=== PATIENT | female | born 1985 | race Caucasian/White ===

== ENCOUNTER 2017-03-01 23:38 | Emergency (ER) | payer SELFPAY ==
[~2017-03-01] VITALS: Ht 177.8 cm; Wt 61.6 kg
[~2017-03-01 23:38] MED LIST: IBUP600 PO; PERC5TAB12 PO; PNVPAK PO
[2017-03-01 23:48] VITALS: BP 114/70; PULSE 62; RESP 14; TEMP 98.4; O2SAT 100
--- NOTE | 2017-03-02 00:20 | PD ---
HPI Chief Complaint: Abdominal Pain Time Seen by Provider: 00:06 Travel History International Travel<30 days: No Contact w/Intl Traveler<30days: No Traveled to known affect area: No History of Present Illness HPI The patient is a 31-year-old female that complains of pain associated with muscle movements on her right side, she feels it "right next to my hip". She just started running lately. She denies any nausea, fever, diarrhea, dysuria, frequency or urgency. Her last menstrual period was February 10. She still has her gallbladder and appendix. She is G7, P3, A 4 with 1 ectopic . [facility] Past Medical History Medical History: Denies Significant Hx Cancer: No Diabetes: No Hepatitis: No Hiatal Hernia: No Thyroid Disease: No Tetanus Vaccination: Never Vaccinated ?: Unknown LMP: 02/10/17 : 7 Para: 3 Miscarriage: 3 Ectopic : Yes (DISOLUTION LAST SATURDAY, BUT QUESTIONABLE SUCCESS) Past Surgical History Abdominal Surgery: No Cardiac Surgery: No Ear Surgery: No Endocrine Surgery: No Eye Surgery: No Genitourinary Surgery: No Gynecologic Surgery: Yes (LAP, D&C) Oral Surgery: No Pacemaker: No Thoracic Surgery: No Other Surgery: Yes Social History Alcohol Use: No Tobacco Use: No (quit 12 years ago) Substance Use: No Allergies-Medications (Allergen,Severity, Reaction): Coded Allergies: No Known Allergies (Verified , 03/01/17) Reported Meds & Prescriptions Reported Meds & Active Scripts Active No Active Prescriptions or Reported Medications Review of Systems Except as stated in HPI: all other systems reviewed are Neg Physical Exam Narrative GENERAL: The patient is alert, oriented 3 in slight apparent distress with her left hip pain. Her vital signs are normal. SKIN: Focused skin assessment warm/dry. HEAD: Atraumatic. Normocephalic. EYES: Pupils equal and round. No scleral icterus. No injection or drainage. ENT: No nasal bleeding or discharge. Mucous membranes pink and moist. NECK: Trachea midline. No JVD. CARDIOVASCULAR: Regular rate and rhythm. No murmur appreciated. RESPIRATORY: No accessory muscle use. Clear to auscultation. Breath sounds equal bilaterally. GASTROINTESTINAL: Abdomen soft, non-tender, nondistended. Hepatic and splenic margins not palpable. MUSCULOSKELETAL: No obvious deformities. No clubbing. No cyanosis. No edema. I can completely reproduce the patient's pain by pressing medial along the right pelvis over the musculature in this area. NEUROLOGICAL: Awake and alert. No obvious cranial nerve deficits. Motor grossly within normal limits. Normal speech. PSYCHIATRIC: Appropriate mood and affect; insight and judgment normal. GENITOURINARY: Normal external genitalia without lesions or erythema. Vaginal vault without blood or drainage. Cervical os was closed without drainage. No cervical motion tenderness. Uterus nontender and nonenlarged. Bilateral adnexa nontender without masses. Data Data Last Documented VS Vital Signs Date Time Temp Pulse Resp B/P Pulse Ox O2 Delivery O2 Flow Rate FiO2 03/01/17 23:48 98.4 62 14 114/70 100 Orders Complete Blood Count With Diff (03/02/17 00:20) Basic Metabolic Panel (Bmp) (03/02/17 00:20) Urinalysis - C+S If Indicated (03/02/17 00:20) Labs Laboratory Tests Test 03/02/17 00:20 White Blood Count 6.7 TH/MM3 Red Blood Count 4.55 MIL/MM3 Hemoglobin 13.4 GM/DL Hematocrit 40.4 % Mean Corpuscular Volume 88.7 FL Mean Corpuscular Hemoglobin 29.4 PG Mean Corpuscular Hemoglobin 33.1 % Concent Red Cell Distribution Width 12.0 % Platelet Count 185 TH/MM3 Mean Platelet Volume 8.1 FL Neutrophils (%) (Auto) 51.4 % Lymphocytes (%) (Auto) 36.2 % Monocytes (%) (Auto) 10.2 % Eosinophils (%) (Auto) 0.8 % Basophils (%) (Auto) 1.4 % Neutrophils # (Auto) 3.4 TH/MM3 Lymphocytes # (Auto) 2.4 TH/MM3 Monocytes # (Auto) 0.7 TH/MM3 Eosinophils # (Auto) 0.1 TH/MM3 Basophils # (Auto) 0.1 TH/MM3 CBC Comment DIFF FINAL Differential Comment Urine Color YELLOW Urine Turbidity CLEAR Urine pH 6.5 Urine Specific [place] 1.025 Urine Protein NEG mg/dL Urine Glucose (UA) NEG mg/dL Urine Ketones TRACE mg/dL Urine Occult Blood NEG Urine Nitrite NEG Urine Bilirubin NEG Urine Leukocyte Esterase NEG Urine RBC 0-3 /hpf Urine WBC 0-2 /hpf Urine Squamous Epithelial 0-5 /hpf Cells Urine Bacteria NONE /hpf Microscopic Urinalysis Comment CULT NOT INDICATED Sodium Level 142 MEQ/L Potassium Level 3.5 MEQ/L Chloride Level 108 MEQ/L Carbon Dioxide Level 26.0 MEQ/L Anion Gap 8 MEQ/L Blood Urea Nitrogen 10 MG/DL Creatinine 1.10 MG/DL Estimat Glomerular Filtration 58 ML/MIN Rate Random Glucose 93 MG/DL Calcium Level 9.2 MG/DL [facility] Medical Decision Making Medical Screen Exam Complete: Yes Emergency Medical Condition: Yes Medical Record Reviewed: Yes Interpretation(s) The [id number] urine test is negative. The CBC is normal. The basic metabolic profile shows a creatinine of 1.1 and GFR 58 but is otherwise unremarkable. The urine shows specific gravity 1.025 with trace ketones but is otherwise normal and culture is not indicated. Differential Diagnosis Musculoskeletal pain, PID, ovarian cyst, ectopic , intrauterine Narrative Course The patient appears to have musculoskeletal pain. Plan: The patient will be given Motrin and rest, it is believed that her return to running may have caused this pain. Diagnosis Primary Impression: Musculoskeletal pain Additional Instructions: As we discussed, discontinue running and take the Motrin regularly. Resume exercising with of a gradual pace. Med/Other Pt SpecificInfo: Prescription(s) given Scripts No Active Prescriptions or Reported Meds Disposition: 01 DISCHARGE HOME Condition: José Manuel Qiu MD Mar 02, 2017 00:20 Condition: José Manuel Qiu MD Mar 02, 2017 00:20
[2017-03-02 00:31] LABS: BLOOD, URINE NEG (NEG); GLUCOSE,URINE NEG (NEG); KETONE, URINE TRACE mg/dL (NEG); NITRITE,URINE NEG (NEG); PH, URINE 6.5 (5.0-8.5)
[2017-03-02 00:32] LABS: AUTOMATED NEUTROPHIL # 3.4 TH/MM3 (1.8-7.7); BASOPHIL # 0.1 TH/MM3 (0-0.2); BASOPHIL % 1.4 % (0.0-2.0); EOSINOPHIL # 0.1 TH/MM3 (0-0.4); EOSINOPHIL % 0.8 % (0.0-4.0); HEMATOCRIT 40.4 % (35.0-46.0); HEMO FLAGS DIFF FINAL; LYMPH % 36.2 % (9.0-44.0); LYMPHOCYTE # 2.4 TH/MM3 (1.0-4.8); MEAN CELL VOLUME 88.7 FL (80.0-100.0); MEAN CORPUSCULAR HEMOGLOBIN 29.4 PG (27.0-34.0); MEAN CORPUSCULAR HGB CONC 33.1 % (32.0-36.0); MONO % 10.2 % (0.0-8.0); NEUT % 51.4 % (16.0-70.0); PLATELET COUNT 185 TH/MM3 (150-450); RED BLOOD COUNT 4.55 MIL/MM3 (4.00-5.30); WHITE BLOOD COUNT 6.7 TH/MM3 (4.0-11.0)
[2017-03-02 00:37] LABS: URINE COLOR YELLOW (YELLW/STRAW)
[2017-03-02 00:38] LABS: COMMENT (UR) CULT NOT INDICATED; CULTURE IF INDICATED CULT NOT INDICATED; RBC, URINE 0-3 /hpf (0-3); SQUAMOUS EPITHELIAL CELL URINE 0-5 /hpf (0-5); WBC, URINE 0-2 /hpf (0-5)
[2017-03-02 00:39] LABS: POTASSIUM 3.5 MEQ/L (3.5-5.1)
[2017-03-02] MEDS ORDERED: IBUP-232 PO (01:39)
[2017-03-02] MEDS ORDERED: IBUPROFEN 600 MG TAB PO ONE (01:45)
== END 2017-03-02 01:53 | disposition home or self-care (01) ==
LOC: PHED 23:38
DX: M79.1 Myalgia (principal); M25.552 Pain in left hip
CPT/HCPCS: 80048; 81001; 85025; 99283

== ENCOUNTER 2017-03-16 08:16 | Emergency (ER) | payer MEDICAID, OTHER ==
[~2017-03-16] VITALS: Ht 167.6 cm; Wt 61.8 kg
[~2017-03-16 08:16] MED LIST changes: +IBUP-232 PO; -IBUP600 PO; -PERC5TAB12 PO; -PNVPAK PO
[2017-03-16 08:22] VITALS: BP 116/77; PULSE 75; RESP 16; TEMP 98.5; O2SAT 100
[2017-03-16 09:07] LABS: BLOOD, URINE LARGE (NEG); GLUCOSE,URINE NEG (NEG); KETONE, URINE NEG (NEG); NITRITE,URINE NEG (NEG); PH, URINE 6.5 (5.0-8.5)
[2017-03-16 09:10] LABS: METHOD OF COLLECTION CLEAN CATCH; URINE COLOR PINK (YELLW/STRAW)
[2017-03-16 09:11] LABS: BACTERIA, URINE OCC /hpf; COMMENT (UR) CULT NOT INDICATED; CULTURE IF INDICATED CULT NOT INDICATED; RBC, URINE INNUM /hpf (0-3)
--- NOTE | 2017-03-16 09:51 | PD ---
HPI . Right pelvic pain in Chief Complaint: Related Problem Time Seen by Provider: 09:20 Travel History International Travel<30 days: No Contact w/Intl Traveler<30days: No Traveled to known affect area: No History of Present Illness HPI Patient presents complaining with right sided pelvic pain. It has been present since about March 02. She was seen here at the onset of her symptoms and diagnosed with musculoskeletal she had a negative test at that time. Her pain has been treated with ibuprofen and Tylenol. Pain persists. She states that her pain is not exacerbated by movement. The pain comes and goes. She states that she has subsequently had a positive home test. Today , she started bleeding. She is concerned about possible ectopic . Her last normal menstrual period was February 10. She states that the test was prompted by sore breasts. The bleeding is very minimal. PFSH Past Medical History Medical History: Denies Significant Hx Cancer: No Diabetes: No Hepatitis: No Hiatal Hernia: No Thyroid Disease: No Tetanus Vaccination: < 5 Years Influenza Vaccination: No ?: LMP: 02/10/17 : 8 Para: 3 Miscarriage: 4 Ectopic : Yes (DISOLUTION in 2006) Dilation and Curettage (D&C): Yes (x2) Past Surgical History Abdominal Surgery: No Cardiac Surgery: No Ear Surgery: No Endocrine Surgery: No Eye Surgery: No Genitourinary Surgery: No Gynecologic Surgery: Yes (LAP, D&C) Oral Surgery: No Pacemaker: No Thoracic Surgery: No Other Surgery: Yes Social History Alcohol Use: No Tobacco Use: No (cigs -quit 12 years ago) Substance Use: No Allergies-Medications (Allergen,Severity, Reaction): Coded Allergies: No Known Allergies (Verified , 03/16/17) Reported Meds & Prescriptions Reported Meds & Active Scripts Active No Active Prescriptions or Reported Medications Review of Systems Except as stated in HPI: all other systems reviewed are Neg General / Constitutional: No: Fever, Chills Genitourinary: Positive: Pelvic Pain, Vaginal Bleeding, No: Urgency, Frequency , Dysuria Musculoskeletal: Positive: Pain (right lower abdomen) Physical Exam Narrative GENERAL: Awake and alert and in no acute distress. SKIN: Warm and dry. HEAD: Atraumatic. Normocephalic. EYES: Pupils equal and round. ENT: No nasal bleeding or discharge. Mucous membranes pink and moist. NECK: Trachea midline. CARDIOVASCULAR: Regular rate and rhythm. RESPIRATORY: No accessory muscle use. GASTROINTESTINAL: Abdomen soft. Minimal tenderness just to the right upper pubic bone. Nondistended. : Normal female external genitalia. Some blood in the vaginal vault consistent with a menstrual cycle. Cervical os is closed. There is no cervical motion tenderness. There is no adnexal tenderness or masses. MUSCULOSKELETAL: No obvious deformities. No edema. NEUROLOGICAL: Awake and alert. No obvious cranial nerve deficits. Motor grossly within normal limits. Normal speech. PSYCHIATRIC: Appropriate mood and affect; insight and judgment normal. Data Data Last Documented VS Vital Signs Date Time Temp Pulse Resp B/P Pulse Ox O2 Delivery O2 Flow Rate FiO2 03/16/17 08:33 16 03/16/17 08:22 98.5 75 116/77 100 Orders Urinalysis - C+S If Indicated (03/16/17 08:36) Ed Urine Pregnancytest Poc (03/16/17 09:20) Beta Hcg (Quant/Titer) (03/16/17 09:26) Gc And Chlamydia Pcr (03/16/17 09:26) Wet Prep Profile (03/16/17 09:26) Labs Laboratory Tests Test 03/16/17 03/16/17 03/16/17 09:00 09:30 09:40 Urine Collection Type CLEAN CATCH Urine Color PINK Urine Turbidity CLOUDY Urine pH 6.5 Urine Specific [place] 1.016 Urine Protein 30 mg/dL Urine Glucose (UA) NEG mg/dL Urine Ketones NEG mg/dL Urine Occult Blood LARGE Urine Nitrite NEG Urine Bilirubin NEG Urine Leukocyte Esterase TRACE Urine RBC INNUM /hpf Urine WBC 3-5 /hpf Urine Bacteria OCC /hpf Microscopic Urinalysis Comment CULT NOT INDICATED Human Chorionic Gonadotropin, 14 MIU/ML Quant Clue Cells (Wet Prep) NONE SEEN Vaginal Trichomonas (Wet Prep) NONE SEEN Vaginal Yeast (Wet Prep) NONE SEEN MDM Medical Decision Making Medical Screen Exam Complete: Yes Emergency Medical Condition: Yes Differential Diagnosis Differential diagnosis of pelvic pain includes but is not limited to UTI, PID, ectopic , spontaneous AB, constipation, viral illness Narrative Course Patient presents complaining with right pelvic pain since about March 02 now associated with vaginal bleeding which started today. In the interim, she has had a positive home test. test on March 02 was negative. She is concerned that she has an ectopic . Last normal menstrual period was February 10. Urine test here today is negative. I suspect that this is her normal menstrual cycle. Quantitative hCG is 14 which is considered equivocal for . Diagnosis Primary Impression: Vaginal bleeding Patient Instructions: Dysfunctional Uterine Bleeding (GEN), General Instructions Additional Instructions: Follow-up with your leasing coordinator if this does not proceed as a normal menstrual cycle. Scripts No Active Prescriptions or Reported Meds Disposition: DISCHARGE HOME Condition: Stable Ni Person MD March 16, 2017 09:51
[2017-03-16 10:28] LABS: BETA HCG QUANT 14 MIU/ML (0-5)
[2017-03-16 17:02] LABS: CHLAMYDIA PCR NOT DETECTED (NOT DETECT); NEISSERIA PCR NOT DETECTED (NOT DETECT)
== END 2017-03-16 10:47 | disposition home or self-care (01) ==
LOC: PHED 08:47
DX: N93.9 Abnormal uterine and vaginal bleeding, unspecified (principal)
CPT/HCPCS: 81001; 84702; 84703; 87210; 87491; 87591; 99284

== ENCOUNTER 2018-04-17 17:07 | Emergency (ER) | payer MEDICAID ==
--- NOTE | 2018-04-17 17:58 | PD ---
HPI Chief Complaint blurry vision and wt gain Date Seen: Apr 17, 2018 Time Seen: 17:51 Travel History International Travel<30 Days: No Contact w/Intl Traveler<30Days: No Known Affected Area: No History of Present Illness HPI 33y/o @ 24.3wks. She has PNC with Dr. Hawley. She presents with concerns of blurry vision and wt gain. She states that she has rapidly been gaining this and has been monitoring and has gained 6lbs in a few days. Reports regular BMs. Denies swelling. Had a mild SINGH which resolved the other day. No LOF, VB. +FM. Weeks Gestation: 24 Para: 3 : 9 History Past Medical History Medical History: Denies Significant Hx Obstetric History Obstetric History ectopic x1 SAB x4 (pt reports luteal phase defect) x3 Past Surgical History Surgical History: No Previous Surgery Family History Family History: Negative Social History Alcohol Use: No Tobacco Use: No Substance Abuse: No Allergies-Medications (Allergen,Severity, Reaction): Coded Allergies: No Known Allergies (Verified , 03/16/17) Home Meds No Active Prescriptions or Reported Meds Narrative Medication PNVs Review of Systems Except as stated in HPI: all other systems reviewed are Neg Physical Exam Narrative General: well developed, well nourished, no acute distress HEENT: normocephalic atraumatic, extraocular movements intact, neck supple Abdomen: soft, gravid, nontender, nondistended Uterus: fundus above umbilicus Extremities: full range of motion, no edema Skin: normal coloration, no rashes, no suspicious skin lesions noted Neurologic: cranial nerves 2-12 grossly intact, normal muscle tone, normal gait Psychiatric: normal mood and affect, appropriate FHTs: 150s, moderate variability, age appropriate with single variable decel [place]: quiet Cvx: deferred Data Data Vital Signs Reviewed: Yes Orders Orders Vital Signs (Adult) .ON ADMISSION (04/17/18 17:50) ^ Labor Status (04/17/18 17:50) ^ Non Stress Test (04/17/18 17:50) Ed Discharge Order (04/17/18 17:50) MDM Plan 33y/o @ 24.3wks with blurry vision and wt gain. 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
== END 2018-04-17 18:11 | disposition home or self-care (01) ==
LOC: HOBED 17:07
DX: O26.892 Other specified pregnancy related conditions, second trimester (principal); H53.8 Other visual disturbances; O26.02 Excessive weight gain in pregnancy, second trimester; Z3A.24 24 weeks gestation of pregnancy
CPT/HCPCS: 99283

== ENCOUNTER → 2018-04-18 | Outpatient (CLI) | payer MEDICAID ==
--- NOTE | 2018-04-19 12:40 | EKG ---
Date Performed: 04/18/2018 Time Performed: 13:36:28 PTAGE: 33 years EKG: Sinus rhythm WITH SINUS ARRHYTHMIA NORMAL ECG NO PREVIOUS TRACING DOCTOR: Elijah Luz Interpretating Date/Time 04/19/2018 12:36:59
== END ==
LOC: HCAV 13:23
PROVIDERS: ATTEND Obstetrics & Gynecology
DX: R01.1 Cardiac murmur, unspecified (principal)
CPT/HCPCS: 93005

== ENCOUNTER 2018-07-27 10:40 | Inpatient (IN) ==
[2018-07-27] MEDS ORDERED: Morphine Sulfate PF Inj 5 MG/10 ML Ampul ONE (11:09)
--- NOTE | 2018-07-27 11:17 | P.HPOB ---
Patient Name: Sherry Hernandez Date of : 83 Patient Status: Inpatient Attending Provider: Rosa Elena Wise Date: 07/27/18 11:07 Initialization Date: 07/27/18 11:07 History of Present Illness Primary Care Physician: Cyril Ordaz MD History of Present Illness: 33-year-old 9 para 3 at 38 weeks 6 days gestation who started having contractions last night and comes today thinking she may be in labor. She denies leakage of fluid or bleeding. She is scheduled for tomorrow due to suspected macrosomia of greater than 10 pounds. Obstetrical history: She has had 4 miscarriages one ectopic and 3 vaginal deliveries. Her current is under the care of and has been complicated by suspected macrosomia. Ultrasound on Saturday of this week estimated weight at 9 lbs. 15 oz. Review of Systems All other systems reviewed negative except as stated in HPI PMFSH - Medical / Surgical Hx Neg / Unobtainable Medical Problems Denied: Yes - Medical History Medical History: Medical History (Last Updated 05/23/18 @ 14:17 by Lance Cole III, MD, R2) Ectopic without intrauterine Fatigue - Surgical History Surgical History: Surgical History (Last Updated 07/27/18 @ 11:11 by Christiano Ferreira MD) History of laparoscopy - Family History Family History: Family History (Last Updated 05/23/18 @ 14:17 by Lance Cole III, MD, R2) Other HTN (hypertension) - Social History I have reviewed the patient's Social History: Yes - Tobacco History Second Hand Smoke Exposure: No Tobacco Use In Past 30 Days: No Smoking Status: Never smoker - Alcohol History How Often Do You Have a Drink Containing Alcohol: Never - Substance Use History Substance History: No History of Abuse - Travel History History of Recent Travel: No Recent Travel in the [place] Within the Last 8 Weeks: No Recent Travel Out of the Country Within the Last 8 Weeks: No Medications and Allergies Allergies Allergy/AdvReac Type Severity Reaction Status Date / Time No Known Allergies Allergy Verified 06/09/18 10:49 Home Medications Medication Instructions Recorded Confirmed Type PNV #[id number] [id number] 1 tab PO DAILY 05/23/18 06/09/18 History Exam Vital signs: Vital Signs 07/27/18 11:00 Temperature 98.3 F Pulse Rate 71 Respiratory Rate 18 Blood Pressure 115/73 Narrative: GENERAL: Well-nourished, well-developed patient. SKIN: Warm and dry. HEAD: Normocephalic and atraumatic. EYES: No scleral icterus. No injection or drainage. ENT: No nasal drainage noted. Mucous membranes pink. Airway patent. NECK: Supple, trachea midline. No JVD. CARDIOVASCULAR: Regular rate and rhythm without murmurs, gallops, or rubs. RESPIRATORY: Breath sounds equal bilaterally. No accessory muscle use. ABDOMEN/GI: Abdomen soft, non-tender, bowel sounds present, no rebound, no guarding Gravid to [-] weeks size Fundal Height: [-42] GENITOURINARY: External Genitalia: intact and normal in appearance BUS glands: [Negative-] Cervix: [] Dilatation: [-2-3] Effacement: [-50] Station: [-3-] Presentation: [-vtx] Membranes: [intact] Uterine Contractions: [Moderate irregular-] FHT's: Category: [1-] Baseline: [-] Reactive: [-y] Variability: [-] Decels: [-] EXTREMITIES: No cyanosis or edema. BACK: Nontender without obvious deformity. No CVA tenderness. NEUROLOGICAL: Awake and alert. Motor and sensory grossly within normal limits. Five out of 5 muscle strength in all muscle groups. Normal speech. Assessment and Plan - Plan Assessment: 38+ week intrauterine in early labor with suspected macrosomia greater than 10 pounds Plan: The patient will be admitted with the plan for . Dr. Wise was made aware. Discharge Plan - Discharge Disposition Patient Disposition: 30 Still Patient - Physicians Team ED Provider: Christiano Ferreira Primary Care Provider: Cyril Ordaz - Rxs /Orders / Referrals /Forms Prescriptions: No Action PNV #[id number] acid-[id number] 30 mg iron-10 mg iron-1 mg Capsule 1 tab PO DAILY - Discharge Instructions Print Language: Danish
[2018-07-27] MEDS ORDERED: ceFAZolin 2 GM Premix Inj 2 GM/50 ML PIGGYBACK IV.SIG PRN (11:18)
[2018-07-27] MEDS ORDERED: Citric Acid/Sodium Citrate Liq 30 ML UDC PO SCH (11:30)
[2018-07-27 11:45] LABS: Baso % (Auto) 0.3 % (0.0-2.0); Eos # (Auto) 0.1 th/mm3 (0.0-0.4); Eos % (Auto) 0.5 % (0.0-4.0); Hematocrit 37.9 % (35.0-46.0); Hemoglobin 12.1 gm/dL (11.6-15.3); Lymph # (Auto) 1.6 th/mm3 (1.0-4.8); Lymph % (Auto) 13.8 % (9.0-44.0); Mean Corpuscular HGB Conc 32.1 % (32.0-36.0); Mean Corpuscular Volume 84.1 fL (80.0-100.0); Mean Platelet Volume 8.2 fL (7.0-11.0); Mono # (Auto) 1.2 th/mm3 (0.0-0.9); Mono % (Auto) 10.2 % (0.0-8.0); Neut # (Auto) 8.7 th/mm3 (1.8-7.7); Neut % (Auto) 75.2 % (16.0-70.0); Platelet Count 217 th/mm3 (150-450); Red Cell Distribution Width 15.9 % (11.6-17.2); White Blood Count 11.6 th/mm3 (4.0-11.0)
[2018-07-27 11:56] LABS: Amphetamine Screen,Urine Neg (Neg); Barbiturate Screen,Urine Neg (Neg); Cannabinoid Screen,Urine Neg (Neg); Cocaine Screen,Urine Neg (Neg)
[2018-07-27] MEDS ORDERED: miSOPROStol 200 MCG Tablet ONE (12:12)
[2018-07-27] MEDS ORDERED: Methylergonovine Inj 0.2 MG/ML Ampul ONE (12:12)
[2018-07-27 12:20] LABS: Opiate Screen,Urine Neg (Neg)
[2018-07-27] MEDS ORDERED: Ketorolac Inj 30 MG/ML (IVP) Vial IV.PUSH ONE (12:50)
[2018-07-27] MEDS ORDERED: Simethicone 80 MG Chew Tablet PO PRN (13:07)
[2018-07-27] MEDS ORDERED: Acetaminophen 325 MG Tablet PO PRN (13:07)
[2018-07-27] MEDS ORDERED: Zolpidem Tartrate 5 MG Tablet PO PRN (13:07)
--- NOTE | 2018-07-27 13:12 | P.OBDELI ---
Procedure Note - Pre Op Diagnosis (1) Active labor at term (2) macrosomia (3) 39 weeks gestation of - Post Op Diagnosis (1) S/P primary low transverse (2) Active labor at term (3) macrosomia (4) 39 weeks gestation of Performed by: Rosa Elena Wise MD Procedure: Primary Low Transverse Section Indication for Delivery: Other (elective primary due to suspected weight > 10 pounds) Informed Consent Obtained: For anesthesia, For procedure Confirmed Correct: Patient, Procedure, Site, Time-out taken Anesthesia: Spinal Medication Prior to Procedure: As documented in eMAR Monitoring During Procedure: Blood pressure monitoring, Pulse oximetry Urinary Catheter: Inserted using sterile technique, To dependent drainage, ml urine output (100) Sterile Preparation: Duraprep, In usual fashion, With drapes to expose affected area Position: Supine with wedge to right side - Operative Features Skin Incision: Pfannenstiel Uterine Incision: Low transverse w/knife / scissors Membranes Ruptured: Artificially, Amount of liquid (copious), Appearance of fluid (thick meconium) Presentation: Vertex Status of : Viable, Cord blood, Nursery present Placenta Delivered: Intact Medications: Antibiotics (ancef 2g IV preop) Estimated blood loss (mL): 500 Procedure Tolerated: Well Maternal Condition: Stable Baby Condition: Stable Procedure in Detail: see dictated op note - Infant Infant: Male Male A Delivery Date: 07/27/18 Infant Delivery Time: 12:32 Weight: 4.865 kg Delivery of Infant: Uneventful score (1 min): 9 score (5 min): 9
[2018-07-27] MEDS ORDERED: Oxytocin 30 Units/500ml Premix 30 UNITS/500 ML BAG ONE (13:14)
[2018-07-27] MEDS ORDERED: Oxytocin 30 Units/500ml Premix 30 UNITS/500 ML BAG IV.SIG ONE (13:30)
[2018-07-27] MEDS ORDERED: Naloxone Inj 0.4 MG/ML Vial IV.PUSH PRN (15:56)
[2018-07-27] MEDS ORDERED: Methylergonovine Inj 0.2 MG/ML Ampul IM ONE (16:00)
--- NOTE | 2018-07-27 17:34 | MP ---
cc: Rosa Elena Wise MD DATE OF OPERATION: 07/27/2018 PREOPERATIVE DIAGNOSES: 1. Majano intrauterine at 38 weeks 6 days. 2. Suspected macrosomia. Estimated weight over 10 pounds. 3. Desired elective primary due to suspected macrosomia. 4. Active labor. POSTOPERATIVE DIAGNOSES: 1. Majano intrauterine at 38 weeks 6 days. 2. Suspected macrosomia. Estimated weight over 10 pounds. 3. Elective primary due to suspected macrosomia. 4. Active labor. 5. Postoperative day number 0. INDICATIONS: Sherry Hernandez is a 33-year-old 9, para now 4-0-5-4, who presented to labor and delivery with complaints of contractions, was found to be in active labor, 3 cm dilated with contractions every 2 minutes, and history of precipitous deliveries. Outpatient evaluation showed suspected macrosomia, estimated weight greater than 10 pounds. The patient had a planned elective primary planned with Dr. Hawley tomorrow, 07/28/2018, but due to presenting in active labor, she was taken for surgery today. PROCEDURE PERFORMED: Primary low transverse delivery. SURGEON: Rosa Elena Wise MD TYPE OF ANESTHESIA: Spinal. ESTIMATED BLOOD LOSS: 500 mL URINE OUTPUT: 100 mL of clear urine draining in the De La Torre bag at the end of the procedure. IV FLUID REPLACEMENT: 1600 mL COMPLICATIONS: None. COUNTS: The sponge, lap, instrument, and needle counts were correct x2 at the conclusion of the procedure. PROPHYLAXIS: Ancef 2 g IV was given preoperatively, and SCDs were on and functioning throughout the entire case. INTRAOPERATIVE FINDINGS: A vigorous viable male infant weighing 10 pounds 12 ounces, correlating to 4865 grams. Apgars of 9 and 9. Amniotic fluid was thick meconium. Normal-appearing uterus, bilateral fallopian tubes, and ovaries. SPECIMEN: None. PROCEDURE IN DETAIL: After reviewing the informed consent, the patient was taken to the operating suite, where a timeout was performed to identify the patient, planned procedure, any known allergies to drugs or drug products. The patient was placed sitting up on the exam table, and spinal anesthesia was administered without difficulty and found to be adequate. The patient was then laid in dorsal supine position with a bump under her right side, and abdomen and perineum were prepped and draped in normal sterile fashion. De La Torre catheter was placed using sterile technique. A Pfannenstiel type skin incision was made with a scalpel and carried down to the underlying layer of fascia with the Bovie. The fascia was incised in the midline. Incision was extended laterally with sharp dissection using Santana scissors. Superior and inferior aspects of the fascial incision were elevated with Theresa clamps and rectus muscles dissected off sharply with Santana scissors. Rectus muscles were then in the midline. Peritoneum was identified and entered bluntly with surgeon's index finger. This incision was extended bluntly with good visualization of pelvic contents. Bladder blade was placed. A bladder flap was not made. A low transverse uterine incision was made. Incision was extended bluntly. Amniotic sac was ruptured with thick meconium noted. The infant's head was grasped and elevated out of the incision. With gentle maneuvering, the rest of the 's body readily delivered. was immediately vigorous and crying upon delivery. Delayed cord clamping at 45 seconds was performed. Cord was then clamped and cut, and the infant was handed off to the awaiting nursery staff. The uterus was then exteriorized, cleared of all clots and debris with sterile moist lap sponges. The placenta had been delivered with gentle cord traction and fundal massage. The hysterotomy was repaired in a double-layer, first in a running locked layer, then an imbricating layer. The posterior cul-de-sac was irrigated copiously with warm sterile saline. Uterus was returned to the abdomen. Additional irrigation with suction was performed, and a layer of Interceed was placed over the repaired hysterotomy to act as an adhesion barrier. Peritoneum was closed in a running layer with 2-0 chromic. Fascia was closed in running layer with #1 Vicryl. Subcutaneous tissue was irrigated, and excellent hemostasis was ensured with the Bovie. Skin was cleaned with dried and closed in a subcuticular fashion with 3-0 Monocryl. Steri-Strips were then placed as well as a standard dressing. The procedure concluded at this point. The patient tolerated the procedure well without complication. DISPOSITION: The patient is resting in the postanesthesia care unit. Her estimated length of stay is 2-3 postoperative days. Infant is currently nursery status. MD Ivanna Wilcox , 01:07 PM , 01:15 PM [facility]ITAL[facility]
[2018-07-27] MEDS ORDERED: Oxytocin 30 Units/500ml Premix 30 UNITS/500 ML BAG IV.SIG PRN (18:07)
[2018-07-28] MEDS: Senna/Docusate Sodium 8.6/50 MG Tablet PO PRN (03:25)
[2018-07-28 05:51] LABS: Baso % (Auto) 0.2 % (0.0-2.0); Eos % (Auto) 0.4 % (0.0-4.0); Hematocrit 25.7 % (35.0-46.0); Hemoglobin 8.3 gm/dL (11.6-15.3); Lymph # (Auto) 2.6 th/mm3 (1.0-4.8); Lymph % (Auto) 18.2 % (9.0-44.0); Mean Corpuscular HGB Conc 32.3 % (32.0-36.0); Mean Corpuscular Volume 83.6 fL (80.0-100.0); Mean Platelet Volume 7.8 fL (7.0-11.0); Mono # (Auto) 1.4 th/mm3 (0.0-0.9); Mono % (Auto) 9.9 % (0.0-8.0); Neut # (Auto) 10.1 th/mm3 (1.8-7.7); Neut % (Auto) 71.3 % (16.0-70.0); Platelet Count 189 th/mm3 (150-450); Red Blood Count 3.08 mil/mm3 (4.00-5.30); Red Cell Distribution Width 15.8 % (11.6-17.2); White Blood Count 14.1 th/mm3 (4.0-11.0)
--- NOTE | 2018-07-28 11:40 | P.PNOB ---
Subjective Post op day: 1 Objective Vital Signs/I&O: Vital Signs 07/27/18 11:45 07/27/18 13:15 07/27/18 13:30 Temperature 97.7 F Pulse Rate 88 58 L Respiratory Rate 18 18 16 Blood Pressure 128/73 106/59 L 07/27/18 13:45 07/27/18 14:00 07/27/18 14:15 Temperature Pulse Rate 59 L 61 60 Respiratory Rate 16 18 18 Blood Pressure 111/63 111/63 115/56 L 07/27/18 14:25 07/27/18 14:30 07/27/18 15:23 Temperature 97.6 F 97.9 F Pulse Rate 59 L 56 L Respiratory Rate 18 18 Blood Pressure 113/57 L 127/79 07/27/18 19:35 07/28/18 00:00 07/28/18 05:10 Temperature 98.1 F 98.2 F 98.0 F Pulse Rate 64 65 72 Respiratory Rate 18 17 16 Blood Pressure 117/63 108/62 100/65 07/28/18 07:25 07/28/18 11:24 Temperature 97.7 F 97.9 F Pulse Rate 64 58 L Respiratory Rate 18 16 Blood Pressure 103/62 102/57 L Intake & Output 07/27/18 07/28/18 07/28/18 18:59 06:59 18:59 Weight 88 kg Result Diagrams: 07/28/18 05:13 Objective Remarks: GENERAL: Well-nourished, well-developed patient. CARDIOVASCULAR: Regular rate and rhythm without murmurs, gallops, or rubs. RESPIRATORY: Breath sounds equal bilaterally. No accessory muscle use. ABDOMEN/GI: Abdomen soft, non-tender, bowel sounds present. Incision: dressing, Clean, dry and intact. Fundus: Firm, non-tender at umbilicus. GENITOURINARY: Light to moderate bleeding. EXTREMITIES: No cyanosis or edema, non-tender, without signs of DVT, pneumatic sequential device on Medications and IVs: Active Medications Acetaminophen (Tylenol) 650 mg PO Q6H PRN PRN Reason: PAIN SCALE 1 TO 2 Diphenhydramine HCl (Benadryl) 50 mg PO Q6H PRN PRN Reason: MILD TO MODERATE ITCHING Stop: 07/28/18 15:55 Diphenhydramine HCl (Benadryl Inj) 25 mg IV.PUSH Q6H PRN PRN Reason: MILD TO MODERATE ITCHING Stop: 07/28/18 15:55 Diphtheria/Pertussis/Tetanus Vacc (Boostrix Vaccine Inj) 0.5 ml IM .ONCE ONE Stop: 07/28/18 16:01 Lactated Ringer's (Lr 1000 Ml Inj) 1,000 mls @ 100 mls/hr IV.CONT .Q10H TEE Stop: 07/28/18 14:06 Last Admin: 07/28/18 05:05 Dose: 100 mls/hr Oxytocin (Pitocin 30 Units/Ns 500 Ml Premix) 30 units in 500 mls @ 100 mls/hr IV.SIG UNSCH PRN PRN Reason: Heavy bleeding Ibuprofen (Motrin) 800 mg PO Q8H PRN PRN Reason: cramping Last Admin: 07/28/18 03:26 Dose: 800 mg Ketorolac Tromethamine (Toradol Inj) 30 mg IM Q6H PRN PRN Reason: SEE LABEL COMMENTS Stop: 08/01/18 13:06 Measles/Mumps/Rubella Vaccine Live (M-M-R Ii Vaccine Inj) 0.5 ml SQ .ONCE ONE Stop: 07/28/18 16:01 Miscellaneous Information ([facility] Information) 1 each OTHER UNSCH PRN PRN Reason: SEE LABEL COMMENTS Stop: 07/28/18 15:55 Miscellaneous Information ([facility] Information) 1 each OTHER UNSCH PRN PRN Reason: SEE LABEL COMMENTS Stop: 07/28/18 15:55 Naloxone HCl (Narcan Inj) 0.4 mg IV.PUSH UNSCH PRN PRN Reason: SEE LABEL COMMENTS Stop: 07/28/18 15:55 Ondansetron HCl (Zofran Inj) 4 mg IV.PUSH Q6H PRN PRN Reason: NAUSEA OR VOMITING Oxycodone/Acetaminophen (Percocet 5/325 Mg) 1 tab PO Q4H PRN PRN Reason: PAIN SCALE 3 TO 5 Last Admin: 07/28/18 03:25 Dose: 1 tab Oxycodone/Acetaminophen (Percocet 5/325 Mg) 2 tab PO Q4H PRN PRN Reason: PAIN SCALE 6 TO 10 Last Admin: 07/28/18 07:57 Dose: 2 tab Senna/Docusate Sodium (Guillermina-Colace) 2 tab PO Q12H PRN PRN Reason: CONSTIPATION Last Admin: 07/28/18 03:25 Dose: 2 tab Simethicone (Mylicon Chew) 80 mg PO QID PRN PRN Reason: FLATULENCE Sodium Chloride (Ns Flush) 2 ml IV.FLUSH BID TEE Last Admin: 07/28/18 03:29 Dose: Not Given Sodium Chloride (Ns Flush) 2 ml IV.FLUSH UNSCH PRN PRN Reason: FLUSH AFTER USING IV ACCESS Zolpidem Tartrate (Ambien) 5 mg PO HS PRN PRN Reason: INSOMNIA Assessment and Plan - Plan POD #1 pt doing well will ambulate and shower today discussed low hemoglobin 8.3, VSS. advised to move slowly and call for assistance, she will report any chest pain, SOB or dizziness. repeat cbc in am pain well managed with oral pain medication bonding with infant passing gas routine care Discharge Planning: consider dc in 1-2 days
[2018-07-28] MEDS ORDERED: Diphtheria/Tetanus/Pertussis Vaccine Inj 0.5 ML Syringe IM ONE (16:00)
[2018-07-28] MEDS ORDERED: Measles/Mumps/Rubella Vaccine Inj 0.5 ML Vial SQ ONE (16:00)
[2018-07-29] MEDS: Senna/Docusate Sodium 8.6/50 MG Tablet PO PRN (01:04)
[2018-07-29 05:51] LABS: Hematocrit 26.5 % (35.0-46.0); Hemoglobin 8.7 gm/dL (11.6-15.3); Mean Corpuscular Hemoglobin 27.3 pg (27.0-34.0); Mean Corpuscular Volume 82.7 fL (80.0-100.0); Mean Platelet Volume 7.6 fL (7.0-11.0); Platelet Count 224 th/mm3 (150-450); Red Cell Distribution Width 16.1 % (11.6-17.2); White Blood Count 14.1 th/mm3 (4.0-11.0)
[2018-07-29 09:24] VITALS: BP 111/65
--- NOTE | 2018-07-29 11:53 | P.PNOB ---
Subjective Post op day: 2 Objective Vital Signs/I&O: Vital Signs 07/28/18 19:49 07/29/18 09:00 Temperature 98.2 F 98.1 F Pulse Rate 67 72 Respiratory Rate 17 20 Blood Pressure 118/68 111/65 Result Diagrams: 07/29/18 05:14 Objective Remarks: GENERAL: Well-nourished, well-developed patient. CARDIOVASCULAR: Regular rate and rhythm without murmurs, gallops, or rubs. RESPIRATORY: Breath sounds equal bilaterally. No accessory muscle use. ABDOMEN/GI: Abdomen soft, non-tender, bowel sounds present. Incision: dressing Clean, dry and intact. Fundus: Firm, non-tender at umbilicus. GENITOURINARY: Light to moderate bleeding. EXTREMITIES: No cyanosis or edema, non-tender, without signs of DVT. Medications and IVs: Active Medications Acetaminophen (Tylenol) 650 mg PO Q6H PRN PRN Reason: PAIN SCALE 1 TO 2 Oxytocin (Pitocin 30 Units/Ns 500 Ml Premix) 30 units in 500 mls @ 100 mls/hr IV.SIG UNSCH PRN PRN Reason: Heavy bleeding Ibuprofen (Motrin) 800 mg PO Q8H PRN PRN Reason: cramping Last Admin: 07/29/18 09:57 Dose: 800 mg Ketorolac Tromethamine (Toradol Inj) 30 mg IM Q6H PRN PRN Reason: SEE LABEL COMMENTS Stop: 08/01/18 13:06 Ondansetron HCl (Zofran Inj) 4 mg IV.PUSH Q6H PRN PRN Reason: NAUSEA OR VOMITING Oxycodone/Acetaminophen (Percocet 5/325 Mg) 1 tab PO Q4H PRN PRN Reason: PAIN SCALE 3 TO 5 Last Admin: 07/29/18 03:37 Dose: 1 tab Oxycodone/Acetaminophen (Percocet 5/325 Mg) 2 tab PO Q4H PRN PRN Reason: PAIN SCALE 6 TO 10 Last Admin: 07/28/18 22:23 Dose: 2 tab Senna/Docusate Sodium (Guillermina-Colace) 2 tab PO Q12H PRN PRN Reason: CONSTIPATION Last Admin: 07/29/18 01:04 Dose: 2 tab Simethicone (Mylicon Chew) 80 mg PO QID PRN PRN Reason: FLATULENCE Sodium Chloride (Ns Flush) 2 ml IV.FLUSH BID TEE Last Admin: 07/28/18 22:24 Dose: 2 ml Sodium Chloride (Ns Flush) 2 ml IV.FLUSH UNSCH PRN PRN Reason: FLUSH AFTER USING IV ACCESS Zolpidem Tartrate (Ambien) 5 mg PO HS PRN PRN Reason: INSOMNIA Assessment and Plan - Plan POD #2 pt doing well didn't remove dressing yesterday but will shower today and remove hemoglobin stable at 8.8 will treat with oral daily iron post once she is no longer taking pain medication pt denies chest pain, SOB or dizziness pain well managed with oral pain medication bottle feeding passing gas routine care Discharge Planning: dc home today
[2018-07-29 16:25] VITALS: PULSE 72; RESP 20; TEMP 98.1
--- NOTE | 2018-07-30 11:52 | P.DS ---
Date of admission: 07/27/18 11:08 Primary care physician: Cyril Ordaz MD Attending physician on discharge: Dat Hawley Anticipated date of discharge: 07/29/18 Brief History from admission: 39 weeks gestation pt admitted for labor primary c section preformed for macrosomia routine care DS: Diagnosis - Discharge Diagnosis (1) S/P primary low transverse Status: Acute (2) Anemia Status: Acute (3) macrosomia Status: Acute DS: Medications - Discharge Medications Prescriptions: ibuprofen 800 mg PO Q8H PRN #30 tab PRN Reason: cramping oxycodone-acetaminophen 1 - 2 tab PO Q4H PRN #24 tab PRN Reason: moderate pain DS: Summary Hospital Course: admitted for labor at 39 weeks gestation primary c section for macrosomia anemia to be managed as outpatient routine care - Time Spent with Patient Total time spent providing and/or coordinating discharge services: Less than 30 minutes Exam Narrative: See pp exam Results Procedures completed during hospitalization: primary c section Discharge Plan - Discharge Disposition Patient Disposition: 01 Discharge Home - Discharge Condition Condition: Good - Discharge Order Discharge Orders: Discharge Order (Routine); Ordered 07/29/18 Ordered By: Richa Garza PROPERTY MAN Clear for Discharge (Routine); Ordered 07/29/18 Ordered By: Richa Garza - Discharge Details Anticipated Discharge Date: 07/30/18 Discharge Comment: return to office 7-10 days for wound/incision check, then 6 weeks for exam - Physicians Team Primary Care Provider: Cyril Ordaz Attending Provider: Rosa Elena Wise
== END 2018-07-29 17:35 | disposition home or self-care (01) ==
LOC: HOBED 10:40 → H2E 11:00 → H1EA 16:22
PROVIDERS: ADMIT Obstetrics & Gynecology; ATTEND Obstetrics & Gynecology